=== PATIENT | male | born 1965 | race Caucasian/White ===

== ENCOUNTER 2019-12-03 14:27 | Emergency (ER) | payer MEDICAID ==
[~2019-12-03] VITALS: Ht 167.6 cm; Wt 113.7 kg
[2019-12-03] MEDS ORDERED: ASPIRIN 81 MG TABLET CHEW PO ONE (15:00)
[2019-12-03 15:41] LABS: BASOPHILS # (AUTO) 0.03 x10^3/uL (0-0.1); BASOPHILS % (AUTO) 0 % (0-1); EOSINOPHILS # (AUTO) 0.22 x10^3/uL (0-0.4); EOSINOPHILS % (AUTO) 3 % (1-7); LYMPHOCYTES # (AUTO) 2.98 x10^3/uL (1-3.4); LYMPHOCYTES % (AUTO) 33 % (22-44); MD NO; MEAN CORPUSCULAR HEMOGLOBIN 28.9 pg (27.5-34.5); MEAN CORPUSCULAR HGB CONC 33.2 g/dL (33.2-36.2); MEAN CORPUSCULAR VOLUME 87.1 fL (81-97); MEAN PLATELET VOLUME 8.9 fL (7.4-10.4); MONOCYTES # (AUTO) 0.66 x10^3/uL (0.2-0.8); MONOCYTES % (AUTO) 7 % (2-9); NEUTROPHILS # (AUTO) 5.09 x10^3/uL (1.8-6.8); NEUTROPHILS % (AUTO) 57 % (42-75); PLATELET COUNT 214 x10^3/uL (130-400); RED BLOOD COUNT 5.42 x10^6/uL (4.38-5.82); RED CELL DISTRIBUTION WIDTH 14.1 % (9.4-14.8)
[2019-12-03 15:50] LABS: ALBUMIN 4.3 g/dL (3.4-5.0); ANION GAP 9 mmol/L (5-15); CALCIUM 8.9 mg/dL (8.5-10.1); CHLORIDE 100 mmol/L (98-107)
[2019-12-03 15:54] LABS: TROPONIN I < 0.015 ng/mL (0.000-0.045)
[2019-12-03] MEDS ORDERED: ASPIRIN 81 MG TABLET CHEW ONE (17:07)
--- NOTE | 2019-12-03 17:17 | NUR ---
SPO2 WAS 88-90% ON RA; PLACED ON 2L O2 NC. ERP AT BS NOW.
[2019-12-03] MEDS ORDERED: SODIUM CHLORIDE FLUSH 10ML SYR IVF ONE (17:30)
[2019-12-03] MEDS ORDERED: LORazepam 1MG TABLET PO ONE (17:30)
[2019-12-03 17:52] LABS: RAPID INFLUENZA A Negative (Negative); RAPID INFLUENZA B Negative (Negative)
[2019-12-03] MEDS ORDERED: LORazepam 1MG TABLET ONE (18:00)
--- NOTE | 2019-12-03 19:42 | NUR ---
PT RETURNS FROM CT.
[2019-12-03] MEDS ORDERED: OMNIPAQUE 350 MG/ML, 100ML BOTTLE ONE (19:44)
[2019-12-03 20:30] VITALS: BP 128/89
--- NOTE | 2019-12-03 20:46 | NUR ---
D/C INSTRUCTIONS, MEDS & F/U APPT RV'WD WITH PT, HE VERBALIZES UNDERSTANDING. RX GIVEN X1. PT AMBULATED OUT OF ED WITHOUT DIFFICULTY, STATES HE WILL TAKE THE BUS HOME.
== END 2019-12-03 20:47 | disposition home or self-care (01) ==
LOC: ED 20:40
DX: J02.9 Acute pharyngitis, unspecified (principal); I10 Essential (primary) hypertension; R07.89 Other chest pain; E11.9 Type 2 diabetes mellitus without complications; F17.200 Nicotine dependence, unspecified, uncomplicated
CPT/HCPCS: 36415; 70491; 71045; 80048; 82040; 84484; 85025; 87400; 93005; 99285; Q9967